=== PATIENT | male | born 1965 | race African-American/Black ===

== ENCOUNTER 2017-11-08 18:18 | Emergency (ER) | payer OTHER ==
[~2017-11-08] VITALS: Ht 188 cm; Wt 84.8 kg
[2017-11-08 18:18] VITALS: BP 124/62
== END 2017-11-08 20:07 | disposition home or self-care (01) ==
LOC: ER 18:20
DX: J01.10 Acute frontal sinusitis, unspecified (principal); J01.00 Acute maxillary sinusitis, unspecified
CPT/HCPCS: A4606; Z7610